=== PATIENT | female | born 1980 | race Two or more races ===

== ENCOUNTER 2024-02-22 09:16 | Outpatient (CLI) | payer OTHER ==
[~2024-02-22 09:16] MED LIST: ACETAMINOPHEN500 M1 PO; DOCUSATE SODIU100 MG PO; PRENATE ADVANCE PO
== END 2024-02-22 09:23 | disposition home or self-care (01) ==
LOC: TOM 09:16
PROVIDERS: ATTEND Internal Medicine
DX: R10.9 Unspecified abdominal pain (principal)

== ENCOUNTER 2024-03-07 08:29 | Outpatient (CLI) | payer OTHER | END 2024-03-07 08:37 | disposition home or self-care (01) | LOC: SONOGRAMA 08:29 | PROVIDERS: ATTEND Internal Medicine | DX: Q44.6 Cystic disease of liver (principal) ==

== ENCOUNTER 2024-11-22 09:44 | Outpatient (CLI) | payer OTHER ==
[2024-11-22 10:41] LABS: HEMATOCRIT 38.5 % (36.0-45.00); HEMOGLOBIN 13.1 g/dL (12.0-15.00); MEAN CELL VOLUME 89.2 fL (80.00-100.00); MEAN CORPUSCULAR HEMOGLOBIN 30.4 pg (27.00-32.0); MEAN CORPUSCULAR HGB CONC 34.1 g/dl (32.0-36.0); PLATELET COUNT 283 K/uL (150-450); RED BLOOD COUNT 4.31 M/uL (4.00-6.00)
[2024-11-22 11:42] LABS: ALBUMIN 3.9 gm/dL (3.4-5.0); BILIRUBIN TOTAL 0.55 mg/dL (0.3-1.2); CALCIUM 9.2 mg/dL (8.5-10.1); CREATININE SERUM 0.83 mg/dL (0.55-1.02); GFR 74.01; GLOBULINA 3.2 G/DL (2.4-3.5); POTASSIUM 4.75 mEq/L (3.5-5.1); TOTAL PROTEIN 7.1 gm/dL (6.4-8.2)
== END 2024-11-22 09:51 | disposition home or self-care (01) ==
LOC: LAB 09:44
PROVIDERS: ATTEND Internal Medicine
DX: R10.0 Acute abdomen (principal)

== ENCOUNTER 2024-12-07 08:08 | Outpatient (CLI) | payer OTHER | END 2024-12-07 08:17 | disposition home or self-care (01) | LOC: SONOGRAMA 08:08 | PROVIDERS: ATTEND Internal Medicine Gastroenterology | DX: D13.5 Benign neoplasm of extrahepatic bile ducts (principal) ==

== ENCOUNTER 2025-01-26 08:58 | Outpatient (CLI) | payer OTHER | END 2025-01-26 09:00 | disposition home or self-care (01) | LOC: NUCLEAR 08:58 | DX: K71.0 Toxic liver disease with cholestasis (principal); R10.11 Right upper quadrant pain; K80.00 Calculus of gallbladder with acute cholecystitis without obstruction ==